=== PATIENT | male | born 1960 | race Caucasian/White ===

== ENCOUNTER 2018-03-22 06:18 | Day surgery (SDC) | payer OTHER ==
[~2018-03-22] VITALS: Ht 175.3 cm; Wt 99.3 kg
[~2018-03-22 06:18] MED LIST: ASPIR 8181 MG PO; LISINOPRIL-HCT1 EAC2 PO; SIMVASTATIN20 MG PO
--- NOTE | 2018-03-22 07:58 | NUR ---
03/22/18 0758 Liliana Wiley 0750 PT ARRIVED TO PACU ON 3L VIA NC. PT REACTIVE DENIES PAIN AND NAUSEA, PT BACK TO SLEEP. SMALL AMOUNT OF SNORING NOTED. RESP EVEN AND UNLABORED.
--- NOTE | 2018-03-22 10:31 | OR ---
[facility] [address], [place] [address] Signed DATE OF OPERATION: 03/22/2018 SURGEON: Shari Rock MD COLONOSCOPY REPORT PREOPERATIVE DIAGNOSES: 1. Change in bowel habits with mucousy stool. 2. Fecal urgency. 3. Guaiac-positive stool. 4. Diverticulosis. POSTOPERATIVE DIAGNOSES: 1. Moderate sigmoid diverticulosis. 2. Minimal internal hemorrhoids with single skin tags. PROCEDURE PERFORMED: Colonoscopy without biopsy. ESTIMATED BLOOD LOSS: None. INDICATIONS: Violetta is a 57-year-old gentleman, who came to us two years ago for a colonoscopy. He had a little rectal bleeding at that time and was found to have moderate sigmoid diverticulosis. We had asked him to call follow up in 10 years. More recently, he had a change in bowel habits with mucousy stool over a couple of weeks. He said there was no pain, but there was some fecal urgency. Stool came back guaiac positive. There is no family history of colon cancer polyps or inflammatory bowel disease. He was therefore, asked to see me for followup colonoscopy. I met with Violetta in the office and I gave him a pamphlet on colonoscopy. We reviewed the nature of the test along with the risks including, but not limited to gas bloating, crampy abdominal pain, bleeding, perforation, requiring surgery, and missed diagnosis. We also discussed the need for IV conscious sedation. He has done well with Versed and fentanyl in the past. He had expressed understanding wished to proceed. PROCEDURE NOTE: Violetta was taken into our endoscopy suite and placed in the left lateral decubitus position. He was given IV sedation with Versed and fentanyl. A digital rectal exam was performed and he does have some induration to the prostate. The left was certainly more Electronically Signed By: SHARI ROCK MD 03/22/18 1031 PATIENT NAME: VIOLETTA POOLE OPERATIVE REPORT DATE OF : 58 REPORT #: [id number] PHYSICIAN: SHARI ROCK MD PCP: ELLYN COLIN REPORT IS CONFIDENTIAL AND NOT TO BE RELEASED WITHOUT AUTHORIZATION [facility] [address], [place] [address] Signed prominent than the right. After this, the adult colonoscope was introduced and advanced all around into the cecum under direct visualization of camera without difficulty. His prep was quite excellent. The scope was then slowly withdrawn. We saw no pathology throughout the colon except he has diverticulosis in the left side. They were moderate in size, moderate in number, and scattered about. No evidence of any inflammatory disease. The rectum was unremarkable. Upon retroflexion of scope he has very minimal internal hemorrhoid tissue along with a single internal anal skin tag. After this, the gas was suctioned out. The colonoscope removed. Violetta tolerated the procedure quite well. RECOMMENDATIONS: Violetta is welcome to follow up in 10 years for repeat colonoscopy. He is always welcome to review his prostate exam with his primary care provider. MD CRISTOBAL Singh/IVY /[id number] cc: MD Ellyn Singh PA Copies: SHARI ROCK MD, JACQUELINE PA ~ Electronically Signed By: SHARI ROCK MD 03/22/18 1031 PATIENT NAME: VIOLETTA POOLE OPERATIVE REPORT DATE OF : 58 REPORT #: [id number] PHYSICIAN: SHARI ROCK MD PCP: ELLYN COLIN REPORT IS CONFIDENTIAL AND NOT TO BE RELEASED WITHOUT AUTHORIZATION
== END 2018-03-22 08:40 | disposition home or self-care (01) ==
LOC: OPS 06:18 → DS 06:18 → OPS 06:45 → DS 06:45 → OPS 08:40
PROVIDERS: Colon & Rectal Surgery
PROC: 0DJD8ZZ Inspection of Lower Intestinal Tract, Via Natural or Artificial Opening Endoscopic (ICD-10-PCS; principal; 2018-03-22 06:45)
DX: K64.8 Other hemorrhoids (principal); K64.4 Residual hemorrhoidal skin tags; K57.30 Diverticulosis of large intestine without perforation or abscess without bleeding; I10 Essential (primary) hypertension; K59.00 Constipation, unspecified; E78.5 Hyperlipidemia, unspecified; E03.9 Hypothyroidism, unspecified; Z79.899 Other long term (current) drug therapy
CPT/HCPCS: 99153; G0500; J2250; J3010; J7120

== ENCOUNTER 2020-10-20 09:38 | Emergency (ER) | payer OTHER ==
[~2020-10-20] VITALS: Ht 175.3 cm; Wt 83.9 kg
[2020-10-20] MEDS ORDERED: NALTREXONE HCL50 MG PO (09:59)
[2020-10-20] MEDS ORDERED: FLUOXETINE HCL20 M1 PO (09:59)
[2020-10-20] MEDS ORDERED: ONDANSETRON ODT8 MG PO (10:58)
[2020-10-20] MEDS ORDERED: OMEPRAZOLE20 MG PO (10:58)
== END 2020-10-20 11:08 | disposition home or self-care (01) ==
LOC: ED 09:38
DX: K92.2 Gastrointestinal hemorrhage, unspecified (principal); F10.10 Alcohol abuse, uncomplicated; Z79.899 Other long term (current) drug therapy
CPT/HCPCS: 80053; 85025; 85610; 85730; 96374; 99284-25; C9113; J7040